=== PATIENT | female | born 1960 | race Caucasian/White ===

== ENCOUNTER 2023-12-22 11:33 | Inpatient (IN) | payer BC ==
[2023-12-22 12:20] VITALS: BMI 48.4
[2023-12-22] MEDS ORDERED: Ondansetron ODT 4 MG TAB PO PRN (13:10)
[2023-12-22] MEDS ORDERED: Ondansetron PF 4 MG/2 ML Vial IVP PRN (13:10)
[2023-12-22] MEDS ORDERED: Acetaminophen 650 MG Suppository PR PRN (13:10)
[2023-12-22] MEDS ORDERED: Communication Order-Pharmacy FS SCH (13:11)
[2023-12-22] MEDS ORDERED: Ipratropium/Albuterol 3 ML NEB NEB PRN (13:14)
[2023-12-22] MEDS ORDERED: Enoxaparin 120 MG/0.8 ML SYRINGE SC SCH ×2 (13:15→21:00)
[2023-12-22] MEDS ORDERED: Insulin Regular 300 UNITS/3 ML VIAL SC PRN (13:36)
[2023-12-22] MEDS ORDERED: Glucagon 1 MG/ML KIT IM PRN (13:36)
[2023-12-22] MEDS ORDERED: Dextrose 50% Abboject 50 ML SYRINGE SLOW IVP PRN (13:36)
[2023-12-22] MEDS ORDERED: Dextrose 5% in Water 1,000 ML IV PRN (13:36)
[2023-12-22] MEDS ORDERED: HumaLOG 300 UNITS/3 ML VIAL SC PRN (13:36)
[2023-12-22] MEDS: predniSONE 20 MG TAB PO SCH (14:12)
[2023-12-22] MEDS: dilTIAZem CD 120 MG CAP PO SCH (14:12)
[2023-12-22] MEDS: Azithromycin 500 MG in Sodium Chloride 0.9% 250 ML 250 ML IVPB SCH (14:14)
[2023-12-22] MEDS: Enoxaparin 100 MG (1 mL) SYRINGE SC SCH ×2 (14:14→22:33)
[2023-12-22] MEDS: cefTRIAXone\\ROCEPHIN 1 GM in Sodium Chloride 0.9% 100 ML IVPB SCH (14:14)
[2023-12-22] MEDS: Enoxaparin 40 MG (0.4 mL) SYRINGE SC SCH ×2 (14:14→22:34)
[2023-12-22 14:23] LABS: #Basophils 0.03 10x3/uL (0.0-0.2); #Monocytes 0.62 10x3/uL (0.0-1.1); #Neutrophils 7.31 10x3/uL (1.5-8.4); %Basophils 0.3 % (0.0-2.0); %Eosinophils 2.1 % (0.0-6.0); %Lymphocytes 15.2 % (18.0-47.0); %Monocytes 6.4 % (0.0-10.0); %Neutrophils 75.8 % (40.0-75.0); Hematocrit 41.8 % (34.9-44.5); Hemoglobin 13.3 g/dL (12.0-15.5); Mean Corpuscular HGB CONC 31.8 g/dL (32.0-36.0); Mean Corpuscular Hemoglobin 30.4 pg (27.0-33.0); Mean Corpuscular Volume 95.4 fl (81.6-98.3); Mean Platelet Volume 12.7 fl (7.4-10.4); Platelet Count 185 10x3/uL (150-450); RBC Distribution Width 14.5 % (11.5-14.5); Red Blood Cell (RBC) Count 4.38 10x6/uL (3.90-5.03); White Blood Cell (WBC) Count 9.7 10x3/uL (3.5-10.5)
[2023-12-22 14:37] LABS: Troponin I 0.025 ng/mL (< 0.028)
[2023-12-22 14:55] LABS: Anion Gap 13 mmol/L (10-20); BUN (Urea Nitrogen) 10 mg/dL (9.8-20.1); Calc. Creatinine Clearance 161 mL/min (70-130); Carbon Dioxide 26 mmol/L (23-31); Chloride 102 mmol/L (98-107); Estimated GFR 87; Glucose 184 mg/dL (80-115); Sodium 137 mmol/L (136-145)
[2023-12-22] MEDS: HumaLOG 300 UNITS/3 ML VIAL SC PRN ×2 (17:23→22:50)
[2023-12-22] MEDS: PREDNISOLONE R EYE SCH (18:15)
[2023-12-22] MEDS: Ipratropium/Albuterol 3 ML NEB NEB SCH (19:23)
[2023-12-22] MEDS: Famotidine/PF 20 mg/2ml Vial SLOW IVP SCH (21:00)
[2023-12-22] MEDS: Rosuvastatin 10 MG TAB PO SCH (21:30)
[2023-12-22] MEDS: Lantus 1000 UNITS/10 ML VIAL SC SCH (21:30)
[2023-12-22] MEDS: Famotidine 20 MG TAB PO SCH (22:35)
[2023-12-23 04:57] LABS: Anion Gap 18 mmol/L (10-20); BUN (Urea Nitrogen) 13 mg/dL (9.8-20.1); Calc. Creatinine Clearance 147 mL/min (70-130); Calcium 9.4 mg/dL (7.8-10.44); Carbon Dioxide 20 mmol/L (23-31); Chloride 102 mmol/L (98-107); Estimated GFR 78; Glucose 356 mg/dL (80-115); Potassium 4.8 mmol/L (3.5-5.1); Sodium 135 mmol/L (136-145)
[2023-12-23 05:30] LABS: #Basophils 0.01 10x3/uL (0.0-0.2); #Monocytes 0.28 10x3/uL (0.0-1.1); #Neutrophils 6.57 10x3/uL (1.5-8.4); %Basophils 0.1 % (0.0-2.0); %Lymphocytes 8.4 % (18.0-47.0); %Monocytes 3.7 % (0.0-10.0); %Neutrophils 87.1 % (40.0-75.0); Hematocrit 43.5 % (34.9-44.5); Hemoglobin 14.1 g/dL (12.0-15.5); Mean Corpuscular HGB CONC 32.4 g/dL (32.0-36.0); Mean Corpuscular Hemoglobin 30.3 pg (27.0-33.0); Mean Corpuscular Volume 93.3 fl (81.6-98.3); Mean Platelet Volume 13.5 fl (7.4-10.4); Platelet Count 122 10x3/uL (150-450); RBC Distribution Width 14.5 % (11.5-14.5); Red Blood Cell (RBC) Count 4.66 10x6/uL (3.90-5.03); White Blood Cell (WBC) Count 7.5 10x3/uL (3.5-10.5)
[2023-12-23 05:56] LABS: Platelet Adequacy Comment Appears Decreased; RBC Morph Comment Within Normal Limits
[2023-12-23] MEDS: predniSONE 20 MG TAB PO SCH (09:26)
[2023-12-23] MEDS: dilTIAZem CD 120 MG CAP PO SCH (09:27)
[2023-12-23] MEDS: Lantus 1000 UNITS/10 ML VIAL SC SCH (10:20)
[2023-12-23] MEDS: HumaLOG 300 UNITS/3 ML VIAL SC PRN (12:30)
[2023-12-23] MEDS ORDERED: Artificial Tear Sol 15 ML BOT EA EYE PRN (15:02)
[2023-12-23] MEDS ORDERED: Moisturizing Cream (Eucerin) 113 GM JAR TOP PRN (15:02)
[2023-12-23] MEDS: Losartan 25 MG TAB PO SCH (15:48)
[2023-12-23] MEDS: metFORMIN 500 MG TAB PO SCH (15:51)
[2023-12-23] MEDS: Loratadine 10 MG TAB PO PRN (15:52)
[2023-12-23] MEDS: Sodium Chloride 0.65% Nasal 44 ML BOT EA NARE PRN (15:55)
[2023-12-23] MEDS: Apixaban 5 MG TAB PO SCH (22:39)
[2023-12-24] MEDS: Losartan 25 MG TAB PO SCH (10:49)
[2023-12-24] MEDS: Lantus 1000 UNITS/10 ML VIAL SC SCH (10:51)
[2023-12-24 16:26] LABS: Anion Gap 15 mmol/L (10-20); BUN (Urea Nitrogen) 19 mg/dL (9.8-20.1); Calc. Creatinine Clearance 150 mL/min (70-130); Calcium 9.7 mg/dL (7.8-10.44); Carbon Dioxide 22 mmol/L (23-31); Chloride 103 mmol/L (98-107); Estimated GFR 79; Glucose 270 mg/dL (80-115); Potassium 5.4 mmol/L (3.5-5.1); Sodium 135 mmol/L (136-145)
[2023-12-24 20:08] LABS: Hemoglobin A1c 9.9 % (4.0-6.0)
[2023-12-24] MEDS: Loperamide HCl 2 MG CAP PO SCH (20:47)
[2023-12-25 04:52] LABS: #Basophils 0.02 10x3/uL (0.0-0.2); #Eosinphils 0.08 10x3/uL (0.0-0.5); #Monocytes 1.12 10x3/uL (0.0-1.1); %Basophils 0.2 % (0.0-2.0); %Eosinophils 0.7 % (0.0-6.0); %Lymphocytes 16.6 % (18.0-47.0); %Monocytes 9.5 % (0.0-10.0); %Neutrophils 72.6 % (40.0-75.0); Hematocrit 41.6 % (34.9-44.5); Hemoglobin 13.3 g/dL (12.0-15.5); Mean Corpuscular Hemoglobin 30.4 pg (27.0-33.0); Mean Corpuscular Volume 95.2 fl (81.6-98.3); Platelet Count 204 10x3/uL (150-450); RBC Distribution Width 14.6 % (11.5-14.5); Red Blood Cell (RBC) Count 4.37 10x6/uL (3.90-5.03); White Blood Cell (WBC) Count 11.8 10x3/uL (3.5-10.5)
[2023-12-25 05:09] LABS: Anion Gap 13 mmol/L (10-20); BUN (Urea Nitrogen) 19 mg/dL (9.8-20.1); Calc. Creatinine Clearance 158 mL/min (70-130); Calcium 9.5 mg/dL (7.8-10.44); Carbon Dioxide 25 mmol/L (23-31); Chloride 104 mmol/L (98-107); Estimated GFR 84; Glucose 138 mg/dL (80-115); Magnesium 2.1 mg/dL (1.6-2.6); Potassium 4.2 mmol/L (3.5-5.1); Sodium 138 mmol/L (136-145)
[2023-12-25] MEDS: Benzonatate 100 MG CAP PO PRN (16:05)
[2023-12-25] MEDS: Acetaminophen 325 MG TAB PO PRN (20:52)
[2023-12-25] MEDS: Saccharomyces boulardii 250 MG CAP PO SCH (20:53)
[2023-12-25] MEDS: guaiFENesin ER 600 MG TAB PO SCH (20:54)
[2023-12-26 04:10] LABS: #Basophils 0.02 10x3/uL (0.0-0.2); #Eosinphils 0.28 10x3/uL (0.0-0.5); #Monocytes 0.98 10x3/uL (0.0-1.1); #Neutrophils 5.68 10x3/uL (1.5-8.4); %Basophils 0.2 % (0.0-2.0); %Monocytes 10.4 % (0.0-10.0); %Neutrophils 60.1 % (40.0-75.0); Hematocrit 39.7 % (34.9-44.5); Hemoglobin 12.5 g/dL (12.0-15.5); Mean Corpuscular HGB CONC 31.5 g/dL (32.0-36.0); Mean Corpuscular Volume 95.2 fl (81.6-98.3); Mean Platelet Volume 12.5 fl (7.4-10.4); Platelet Count 175 10x3/uL (150-450); RBC Distribution Width 14.6 % (11.5-14.5); Red Blood Cell (RBC) Count 4.17 10x6/uL (3.90-5.03); White Blood Cell (WBC) Count 9.5 10x3/uL (3.5-10.5)
[2023-12-26 04:38] LABS: Anion Gap 11 mmol/L (10-20); BUN (Urea Nitrogen) 20 mg/dL (9.8-20.1); Calc. Creatinine Clearance 186 mL/min (70-130); Carbon Dioxide 27 mmol/L (23-31); Chloride 102 mmol/L (98-107); Estimated GFR 98; Glucose 67 mg/dL (80-115); Potassium 3.9 mmol/L (3.5-5.1); Sodium 136 mmol/L (136-145)
[2023-12-26] MEDS: cefTRIAXone\\ROCEPHIN 1 GM in Sodium Chloride 0.9% 100 ML IVPB SCH (09:50)
[2023-12-26] MEDS: Azithromycin 500 MG in Sodium Chloride 0.9% 250 ML 250 ML IVPB SCH (10:35)
[2023-12-26 12:24] VITALS: BP 158/70; TEMP 97.7
[2023-12-26] MEDS ORDERED: Lantus 1000 UNITS/10 ML VIAL SC SCH (21:00)
== END 2023-12-26 14:00 | disposition home or self-care (01) | DRG 871 ==
LOC: CSHTELE 11:33
PROVIDERS: ADMIT Family Medicine; ATTEND Internal Medicine
DX: A41.9 Sepsis, unspecified organism (principal); J15.69 Pneumonia due to other Gram-negative bacteria; J96.01 Acute respiratory failure with hypoxia; Z68.42 Body mass index [BMI] 45.0-49.9, adult; E87.1 Hypo-osmolality and hyponatremia; R65.20 Severe sepsis without septic shock; I48.91 Unspecified atrial fibrillation; E66.01 Morbid (severe) obesity due to excess calories; I10 Essential (primary) hypertension; E78.5 Hyperlipidemia, unspecified; Z79.84 Long term (current) use of oral hypoglycemic drugs; Z79.899 Other long term (current) drug therapy; E11.65 Type 2 diabetes mellitus with hyperglycemia; Z79.4 Long term (current) use of insulin; F17.210 Nicotine dependence, cigarettes, uncomplicated; Z98.890 Other specified postprocedural states; E87.5 Hyperkalemia
CPT/HCPCS: 36415; 36416; 71045; 71046; 80048; 83036; 83735; 84145; 84443; 84484; 85025; 93306; 94640; 94760; 94762; J0456; J0696; J1650; J1815; J3490; J7050; J7512; J7620; S0028